=== PATIENT | male | born 1970 | race Caucasian/White ===

== ENCOUNTER 2016-11-23 22:40 | Inpatient (IN) | payer OTHER ==
[~2016-11-23] VITALS: Ht 170.2 cm; Wt 73.5 kg
--- NOTE | ~2016-11-23 | CR21 ---
[facility] A Service of [facility] & [facility] RADIOLOGY TEXT RESULTS PATIENT: SHANI DICKERSON LOCATION: [facility] 468-01 : 69 UNIT #: [id number] AGE: [address]: Sandip Kay MD SEX: M ORDER DR: [id number] [place] [id number] [facility]. [place], [place] [address] [id number] I MR#: [id number] Acc #: [id number] NAME: SHANI DICKERSON : 1970 SEX: M STUDY DATE/TIME: 11/24/2016 13:11 UNIT: [facility] ROOM: [facility] STUDY DESCRIPTION: CR Ankle Min 3 Views Rt Attending Physician: Toño Kay M.D. Ordering Physician: Adam Ray MEDICAL IMAGING REPORT This report is preliminary unless electronic signature is present EXAM Right ankle. INDICATIONS Right ankle fracture. Fracture of the medial malleolus. FINDINGS Three fluoroscopic views of the right ankle compared to 11/23/2016. The transverse fracture through the medial malleolus has been repaired with 2 cannulated screws. Alignment is anatomic. There is a corner fracture involving the anterior tibia. There is generalized soft tissue swelling. Fluoroscopic time 44 seconds. IMPRESSION Anatomic alignment status post ORIF of the right ankle. Dictated by... Heath Buitrago M.D. THIS IS AN ELECTRONICALLY VERIFIED REPORT Heath Buitrago M.D. at 11/25/2016 11:39 AM KENNETH/kayla TD: 11/25/2016 10:55 JOB #: [id number] MEDICAL IMAGING REPORT Page 1 of 1 COPY
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
--- NOTE | ~2016-11-23 | CR170 ---
[facility] A Service of [facility] RADIOLOGY TEXT RESULTS PATIENT: SHANI DICKERSON LOCATION: [facility] : [birth year] UNIT #: [id number] AGE: [address]: Sandip Kay MD SEX: M ORDER DR: [id number] [address] [address] [id number] I MR#: [id number] Acc #: [id number] NAME: SHANI DICKERSON : 1970 SEX: M STUDY DATE/TIME: 11/24/2016 13:11 UNIT: [facility] ROOM: [facility] STUDY DESCRIPTION: CR Knee 2 Views Rt Attending Physician: Toño Kay M.D. Ordering Physician: Adam Ray MEDICAL IMAGING REPORT This report is preliminary unless electronic signature is present EXAM 2 views right knee. HISTORY Right knee fracture. Right knee pain. TECHNIQUE 2 fluoroscopic views of the right knee. COMPARISON CT dated 11/24/2016. FINDINGS 2 cannulated screws traverse the lateral plateau fracture. Alignment is anatomic. FLUOROSCOPIC TIME 24 seconds. IMPRESSION Anatomic alignment status post ORIF of the lateral tibial plateau fracture. Dictated by... Heath Buitrago M.D. THIS IS AN ELECTRONICALLY VERIFIED REPORT Heath Buitrago M.D. at 11/25/2016 11:41 AM RPC/olegario TD: 11/25/2016 11:21 JOB #: [id number] MEDICAL IMAGING REPORT [facility] A Service of [facility] RADIOLOGY TEXT RESULTS PATIENT: SHANI DICKERSON LOCATION: [facility] : [birth year] UNIT #: [id number] AGE: [address]: Sandip Kay MD SEX: M ORDER DR: Page 1 of 1 COPY
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
--- NOTE | ~2016-11-23 | DS ---
Unit #: [id number] #: [id number] Patient: SHANI IDCKERSON [id number] [address] [place], [place] [address] [id number] I MR#: [id number] NAME: SHANI DICKERSON ROOM: 468 Age: 46 Sex: M Admission Date: 11/24/2016 : 1970 Discharge Date: 11/26/2016 Attending Physician: Toño Kay M.D. DISCHARGE SUMMARY SERVICE Orthopedic Surgery. ADMITTING DIAGNOSES 1. Right open ankle fracture. 2. Right tibial plateau fracture. DISCHARGE DIAGNOSES 1. Right grade 1 open medial malleolus fracture. 2. Right unicondylar lateral tibial plateau fracture. PROCEDURE PERFORMED 1. Open reduction and internal fixation of right medial malleolus fracture. 2. Open reduction and internal fixation of right unicondylar tibial plateau fracture. 3. Irrigation and debridement including treatment of bone, fascia, and muscle of right ankle. CONSULTATIONS None. DIET Regular. WEIGHTBEARING STATUS The patient is nonweightbearing on the right lower extremity. SPECIAL INSTRUCTIONS The patient instructed to keep the splint clean and dry until followup and he is to wear the hinged knee brace at all times when out of bed. This may be unlocked, but he is still nonweightbearing. HOSPITAL COURSE The patient was seen and evaluated in the emergency department and found to have a poke hole open right ankle fracture as well as tibial plateau fracture and so the patient was placed into a splint and given tetanus prophylaxis and appropriate antibiotics and was taken to the operating room later that day for the above described procedures. The patient tolerated these well and postoperatively the patient's pain was well controlled with oral pain medications, he was voiding without difficulty and was ambulating with assistive devices with physical therapy at the Unit #: [id number] #: [id number] Patient: SHANI DICKERSON time of discharge. The patient is a heavy smoker and did have difficulty complying with restrictions to not smoke in the hospital room or try to leave the floor to smoke and so it was felt that as he was otherwise doing well. The best course of action was to discharge him home. DISPOSITION Home. DISCHARGE CONDITION Good. FOLLOWUP The patient is to follow up in my office in 2 weeks, the patient call for an appointment. DISCHARGE MEDICATIONS See MAR for exact dosages but discharge medications include acetaminophen, Xarelto, oxycodone, Celebrex. Dictated by... Volodymyr Sharma/kirsten TD: 11/27/2016 13:10 JOB #: [id number] DISCHARGE SUMMARY Page 1 of 1 X X DISCHARGE SUMMARY
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
[2016-11-24 02:42] LABS: BASOPHIL# 0.1 X10e3 (0-0.3); BASOPHIL% 0.6 % (0-2.5); EOSINOPHIL% 0.2 % (0.0-7.0); HEMATOCRIT 42.7 % (38.0-50.0); HEMOGLOBIN 14.4 gm/dL (13.0-16.0); LYMPHOCYTE% 12.6 % (17.0-45.0); MEAN CELL VOLUME 89.4 FL (83-96); MEAN CORPUSCULAR HEMOGLOBIN 30.1 PG (28-34); MEAN CORPUSCULAR HGB CONC 33.7 g/dL (30-36); MEAN PLATELET VOLUME 8.7 FL (6.5-11.5); MONOCYTE# 1.2 X10e3 (0-1.0); MONOCYTE% 7.4 % (3.0-12.0); NEUTROPHIL# 12.8 X10e3 (1.5-7.1); NEUTROPHIL% 79.2 % (40-75); PLATELET COUNT 318 X10e3 (140-420); RED BLOOD COUNT 4.78 X10e (3.90-5.60); RED CELL DISTRIBUTION WIDTH 13.6 % (11.0-15.5); WHITE BLOOD COUNT 16.2 X10e3 (4.0-10.5)
[2016-11-24 02:44] LABS: DIFF IND YES
[2016-11-24 02:51] LABS: INR 1.1; PARTIAL THROMBOPLASTIN TIME 26.8 SECONDS (23.5-31.3); PROTHROMBIN TIME (PATIENT) 11.7 SECONDS (10.0-11.7)
[2016-11-24 02:55] LABS: ANISOCYTOSIS SL; PLATELET ESTIMATE NORMAL (NORMAL)
[2016-11-24 03:07] LABS: BUN/CREATININE RATIO 28.57; CALCIUM SERUM 9.6 mg/dL (8.4-10.2); CREATININE SERUM 0.7 mg/dL (0.6-1.4); GLOM FILT RATE Estimated 119.8 mL/min (>60); POTASSIUM 3.3 mmol/L (3.5-5.1)
[2016-11-24 12:00] LABS: AMPHETAMINE POS (NEG); BARBITURATES NEG (NEG); BENZODIAZEPINES NEG (NEG); COCAINE NEG (NEG); MARIJUANA NEG (NEG); OPIATES POS (NEG); TRICYCLIC ANTIDEPRESSANTS NEG (NEG); U METHADONE NEG (NEG)
[2016-11-26] MEDS ORDERED: XARELTO10 MG PO (11:30)
[2016-11-26] MEDS ORDERED: ROXICODONE5 MG PO (11:36)
[2016-11-26] MEDS ORDERED: CELECOXIB200 MG PO (11:37)
[2016-11-26] MEDS ORDERED: ACETAMINOPHEN PO (11:40)
== END 2016-11-26 15:45 | disposition home or self-care (01) | DRG 493 ==
LOC: CED 22:40 → CEDOF 11-24 05:30 → CED 11-24 05:48 → EDBD 11-24 05:48 → C4C 11-24 05:48 → CEDOF 11-24 09:22 → C4C 11-24 09:22
PROVIDERS: Emergency Medicine; Orthopaedic Surgery
PROC: 0QSG04Z Reposition Right Tibia with Internal Fixation Device, Open Approach (ICD-10-PCS; principal; 2016-11-24 11:30)
PROC: 0QSG04Z Reposition Right Tibia with Internal Fixation Device, Open Approach (ICD-10-PCS; 2016-11-24 11:30)
DX: S82.51XB Displaced fracture of medial malleolus of right tibia, initial encounter for open fracture type I or II (principal); S82.141A Displaced bicondylar fracture of right tibia, initial encounter for closed fracture; V03.90XA Pedestrian on foot injured in collision with car, pick-up truck or van, unspecified whether traffic or nontraffic accident, initial encounter; F17.210 Nicotine dependence, cigarettes, uncomplicated
CPT/HCPCS: 36415; 73560; 73590; 73610; 73630; 73700; 76001; 80048; 80307; 85025; 85610; 85730; 90471; 90715; 96372; 96374; 97110; 97116; 97161; 97530; 99284; C1713; G8978-GP; G8979-GP; G8980-GP; J0131; J0690; J1170; J1885; J2250; J2270; J3010; L1845